=== PATIENT | female | born 1990 | race Caucasian/White ===

== ENCOUNTER 2016-10-05 20:13 | Emergency (ER) | payer OTHER ==
[2016-10-05 20:22] VITALS: BP 111/70; BMI 25.4
[2016-10-05 21:00] LABS: APPEARANCE,URINE HAZY (CLEAR); BACTERIA,URINE 1+ /HPF (NEGATIVE); BILIRUBIN,URINE NEGATIVE (NEGATIVE); BLOOD/HEMOGLOBIN,URINE 5+ (NEGATIVE); COLOR,URINE YELLOW (YELLOW); GLUCOSE, URINE NEGATIVE (NEGATIVE); KETONES,URINE NEGATIVE (NEGATIVE); LEUKOCYTE ESTERASE ,URINE 3+ (NEGATIVE); MUCUS,URINE FEW /HPF (NEGATIVE); NITRITES,URINE NEGATIVE (NEGATIVE); PROTEIN,URINE 2+ (NEGATIVE); SQUAMOUS EPITHELIAL CELL,UR FEW /HPF (NEGATIVE); UROBILINOGEN,URINE 1+ (NORMAL)
[2016-10-05] MEDS ORDERED: MORPHINE SULFATE INJ 4 MG IVP ONE (21:38)
[2016-10-05] MEDS ORDERED: MORPHINE SULFATE INJ 4 MG ONE (21:39)
[2016-10-05] MEDS ORDERED: NS 1000 ML 1,000 ML ONE (21:50)
[2016-10-05 21:53] LABS: BASOPHILS % (AUTO) 0.2 % (0.2-1.0); EOSINOPHILS # (AUTO) 0.1 x10^3/uL (0.0-0.2); EOSINOPHILS % (AUTO) 0.6 % (0.9-2.9); HEMATOCRIT 39.2 % (36.0-47.0); HEMOGLOBIN 13.5 g/dL (12.0-16.0); LYMPHOCYTES # (AUTO) 1.1 X10^3/uL (1.3-2.9); LYMPHOCYTES % (AUTO) 12.4 % (21.0-51.0); MEAN CORPUSCULAR HEMOGLOBIN 30.2 pg (27.0-34.0); MEAN CORPUSCULAR HGB CONC 34.5 g/dL (33.0-35.0); MEAN CORPUSCULAR VOLUME 87.5 fL (80.0-100.0); MEAN PLATELET VOLUME 7.4 fL (7.4-11.0); MONOCYTES # (AUTO) 0.8 x10^3/uL (0.3-0.8); MONOCYTES % (AUTO) 9.4 % (0.0-13.0); NEUTROPHILS # (AUTO) 6.6 x10^3/uL (2.2-4.8); NEUTROPHILS % (AUTO) 77.4 % (42.0-75.0); PLATELET COUNT 189 X10^3/uL (150.0-450.0); RED BLOOD COUNT 4.48 X10^6/uL (3.5-5.4); RED CELL DISTRIBUTION WIDTH 13.6 % (11.6-16.5); WHITE BLOOD COUNT 8.5 X10^3/uL (3.6-10.0)
[2016-10-05] MEDS ORDERED: NS 1000 ML 1,000 ML IV SCH (22:00)
[2016-10-05 22:05] LABS: BLOOD UREA NITROGEN 11 mg/dL (7-18); CALCIUM 9.1 mg/dL (8.5-10.1); CARBON DIOXIDE 28.9 mmol/L (21-32); CHLORIDE 102 mmol/L (98-107); COR NA(FOR HYPERGLY) 141 mmol/L (136-145); GLUCOSE 128 mg/dL (65-99); SODIUM 140 mmol/L (136-145); eGFR BLACK RACES > 60 (>60); eGFR NON BLACK RACES > 60 (>60)
[2016-10-05] MEDS ORDERED: NS 100 ML IV 100 ML IV ONE (22:47)
--- NOTE | 2016-10-05 23:25 | CT ---
EXAM: CT ABDOMEN AND PELVIS WITH CONTRAST INDICATION: Back pain and fever COMPARISION: No priors available for comparison TECHNIQUE: Axial CT examination of the abdomen and pelvis was performed with intravenous contrast. The patient received intravenous contrast without adverse reaction. Coronal and sagittal reconstructions were c reated using the axial data. FINDINGS: The lung bases are clear. The liver, spleen, pancreas, adrenal glands, left kidney, and gallbladder are normal. There are 2 focal areas of abnormal contrast enhancement in the superior pole of the rig ht kidney. There is no evidence of biliary ductal dilatation. The aorta and inferior vena cava are n ormal in caliber. The bowel loops are nonobstructed. No abnormal mass, lymphadenopathy, or fluid collection. Urinary bladder is normal. Varicosities are seen along the lateral aspects of the uterus. The appen kathryn is normal. The regional skeleton is intact. IMPRESSION: In the superior pole of the right kidney there are 2 focal areas of abnormal contrast enhancement. T hese changes may be associated with pyelonephritis. Pelvic varicosities are seen on either side of the uterus. These changes may be associated with pelv ic vascular congestion syndrome. Reported By:
--- NOTE | 2016-10-06 00:10 | DR.GENAD ---
HPI - PCP Primary Care Physician: EBENEZER - Complaint/Symptoms Chief Complaint:: PT STATES" THURSDAY MY BACK STARTED HURTING ME AND I STARTED RUNNING A FEVER YESTERDAY MY BACK IS HURTING BAD AND THE FEVER HASNT STOPPED " - Source History Provided: Patient - Mode of Arrival Mode of Arrival: Ambulatory - Timing Onset of Chief Complaint: 10/01/16 PMH - PMH Past Medical History: No Past Surgical History: Yes Surgical History: , Tonsillectomy - Family History History of Family Medical Conditions: No - Social History Does any household member use tobacco: No Alcohol Use: None Do you use any recreational Drugs:: No Lives With: Family Lives Where: Home - infectious screening In the last 2 months have you had wt loss of >10#?: NO Have you had fever, night sweats or hemotysis?: No Have you traveled outside the country in the last 6 months?: No Isolation: Standard ROS - Review of Systems Eyes: No Symptoms Reported ENTM: No Symptoms Reported Respiratoy: No Symptoms Reported Cardiovascular: No Symptoms Reported Gastrointestinal/Abdominal: Abdominal Pain Genitourinary: No Symptoms Reported Neurological: No Symptoms Reported Musculoskeletal: No Symptoms Reported, Back Pain (right flank) Integumentary: No Symptoms Reported Hematologic/Lymphatic: No Symptoms Reported Endocrine: No Symptoms Reported Psychiatric: No Symptoms Reported All Other Systems: Reviewed and Negative PE - Vital Signs Vitals: Temperature 97.8 F Pulse Rate 83 Respiratory Rate 18 Blood Pressure 111/70 O2 Sat by Pulse Oximetry 100 - General Limitations: No Limitations General Appearance: Alert, In No Apparent Distress - Head Head Exam: Normal Inspection, Atraumatic - Eyes Eye exam: Normal Appearance, PERRL, EOMI - ENT ENT Exam: Normal Exam External Ear Exam: Normal External Inspection TM/Canal Exam: Bilateral Normal Nose Exam: Normal Nose Exam Mouth Exam: Normal Inspection Throat Exam: Normal Inspection - Neck Neck Exam: Normal Inspection - Chest Chest Inspection: Normal Inspection - Respiratory Respiratory Exam: Normal Lung Sounds Bilat Respiratory Exam: Bilateral Clear to Auscultation - Cardiovascular Cardiovascular Exam: Regular Rate, Normal Rhythm - Abdominal Exam Abdominal Exam: Normal Inspection, Normal Bowel Sounds Abdominal Tenderness: negative: RUQ, RLQ, LUQ, LLQ, Epigastrium, Suprapubic, Diffuse, Mild, Moderate, Severe, Other - Extremities Extremities Exam: Normal Inspection, Full ROM - Back Back Exam: Normal Inspection, Full ROM - Neurologic Neurological Exam: Alert, Oriented X3, CN II-XII Intact - Psychiatric Psychiatric Exam: Normal Affect - Skin Skin Exam: Warm, Dry ROR - Labs Reviewed Laboratory Results Reviewed?: Yes (Urine:6-10 WBC, 3+leuk,5+bld) Result Diagrams: 10/05/16 21:45 10/05/16 21:45 Laboratory: WBC 8.5 X10^3/uL (3.6-10.0) 10/05/16 21:45 RBC 4.48 X10^6/uL (3.5-5.4) 10/05/16 21:45 Hgb 13.5 g/dL (12.0-16.0) 10/05/16 21:45 Hct 39.2 % (36.0-47.0) 10/05/16 21:45 MCV 87.5 fL (80.0-100.0) 10/05/16 21:45 MCH 30.2 pg (27.0-34.0) 10/05/16 21:45 MCHC 34.5 g/dL (33.0-35.0) 10/05/16 21:45 RDW 13.6 % (11.6-16.5) 10/05/16 21:45 Plt Count 189 X10^3/uL (150.0-450.0) 10/05/16 21:45 MPV 7.4 fL (7.4-11.0) 10/05/16 21:45 Neut % 77.4 % (42.0-75.0) H 10/05/16 21:45 Lymph % 12.4 % (21.0-51.0) L 10/05/16 21:45 [place] % 9.4 % (0.0-13.0) 10/05/16 21:45 Eos % 0.6 % (0.9-2.9) L 10/05/16 21:45 Baso % 0.2 % (0.2-1.0) 10/05/16 21:45 Neut # 6.6 x10^3/uL (2.2-4.8) H 10/05/16 21:45 Lymph # 1.1 X10^3/uL (1.3-2.9) L 10/05/16 21:45 [place] # 0.8 x10^3/uL (0.3-0.8) 10/05/16 21:45 Eos # 0.1 x10^3/uL (0.0-0.2) 10/05/16 21:45 Baso # 0.0 X10^3/uL (0.0-0.1) 10/05/16 21:45 Absolute Nucleated RBC 0.0 /100WBC 10/05/16 21:45 Sodium 140 mmol/L (136-145) 10/05/16 21:45 Corrected Sodium 141 mmol/L (136-145) 10/05/16 21:45 Potassium 3.5 mmol/L (3.5-5.1) 10/05/16 21:45 Chloride 102 mmol/L (98-107) 10/05/16 21:45 Carbon Dioxide 28.9 mmol/L (21-32) 10/05/16 21:45 BUN 11 mg/dL (7-18) 10/05/16 21:45 Creatinine 0.70 mg/dL (0.55-1.02) 10/05/16 21:45 Est GFR (MDRD) Af Amer > 60 (>60) 10/05/16 21:45 Est GFR (MDRD) Non-Af > 60 (>60) 10/05/16 21:45 Glucose 128 mg/dL (65-99) H 10/05/16 21:45 Calcium 9.1 mg/dL (8.5-10.1) 10/05/16 21:45 C-Reactive Protein 149.00 mg/L (0-3.0) H 10/05/16 21:45 Specimen Type Clean catch urine 10/05/16 20:43 Urine Color Yellow (YELLOW) 10/05/16 20:43 Urine Appearance Hazy (CLEAR) 10/05/16 20:43 Urine pH 6.0 (5.0 - 8.0) 10/05/16 20:43 Ur Specific Energy 1.015 (1.000-1.030) 10/05/16 20:43 Urine Protein 2+ (NEGATIVE) 10/05/16 20:43 Urine Glucose (UA) Negative (NEGATIVE) 10/05/16 20:43 Urine Ketones Negative (NEGATIVE) 10/05/16 20:43 Urine Occult Blood 5+ (NEGATIVE) 10/05/16 20:43 Urine Nitrite Negative (NEGATIVE) 10/05/16 20:43 Urine Bilirubin Negative (NEGATIVE) 10/05/16 20:43 Urine Urobilinogen 1+ (NORMAL) 10/05/16 20:43 Ur Leukocyte Esterase 3+ (NEGATIVE) 10/05/16 20:43 Urine RBC 5-10 /HPF (NEGATIVE) 10/05/16 20:43 Urine WBC 6-10 /HPF (NEGATIVE) 10/05/16 20:43 Ur Squamous Epith Cells Few /HPF (NEGATIVE) 10/05/16 20:43 Urine Bacteria 1+ /HPF (NEGATIVE) 10/05/16 20:43 Urine Mucus Few /HPF (NEGATIVE) 10/05/16 20:43 Ur Culture Indicated? No/not indicated 10/05/16 20:43 - XRAY XRAY Interpreted by: Radiologist (CT Abd/Pelf: In the superior pole of the right kidney there are two focal areas of abnormal contrast enhancement. These changes may be associated with yelonephritis. Pelvic varicosities are seen on either side of the uterus. These changes may be associated with pelvic vascular congestion syndrome) - Diagnosis Discharge Problem: Pyelonephritis - Discharge Plan Condition: Stable Prescriptions: Acetaminophen/Codeine Tab [TYLENOL w/CODEINE #3 (300 MG/30 MG) *] 1 tab PO Q4- 6H PRN #12 tab PRN Reason: Pain Levofloxacin 750 mg PO Q24H #7 tab - Follow ups/Referrals Follow ups/Referrals: QUAN SOL [Primary Care Provider] - 3 days - Instructions
[2016-10-06] MEDS ORDERED: LEVAQUIN PREMIX IV 750 MG 750 MG/150 ML BAG IV ONE ×2 (00:34→00:46)
[2016-10-06] MEDS ORDERED: MORPHINE SULFATE INJ 4 MG IVP ONE (00:43)
[2016-10-06] MEDS ORDERED: MORPHINE SULFATE INJ 4 MG ONE (00:46)
== END 2016-10-06 02:30 | disposition home or self-care (01) ==
LOC: ER 20:13
DX: N12 Tubulo-interstitial nephritis, not specified as acute or chronic (principal)
CPT/HCPCS: 36415; 74177; 80048; 81001; 85025; 86140; 96365; 96367; 96374; 96375; 99283; A4222; J1956; J2270